=== PATIENT | male | born 1995 | race Caucasian/White ===

== ENCOUNTER 2024-02-02 08:21 | Emergency (ER) | payer SELFPAY ==
[2024-02-02 08:26] VITALS: BP 121/86; PULSE 76; RESP 18; TEMP 36.7; O2SAT 98; BMI 28.3
--- NOTE | 2024-02-02 08:27 | ECG_ITS ---
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 Measurements Intervals [place] Rate: 75 P: 47 DE: 136 QRS: 47 QRSD: 90 T: 41 QT: 384 QTc: 430 Interpretive Statements SINUS RHYTHM No previous ECG available for comparison Electronically Signed On 02-03-2024 01:04:22 DIGITAL PERFORMANCE ANALYST by Joanne Rothman M.D. [id number]
--- NOTE | 2024-02-02 08:38 | XR_ITS ---
WS: [id number] Exam: XR chest 1V portable [id number] Date/Time of Exam: 02/02/2024 8:40 AM Reason For Exam: dyspnea/cough No priors. Lungs are clear and fully inflated. Normal cardiomediastinal silhouette and regional bony elements. N o pleural effusion. XR/XR chest 1V portable [id number] IMPRESSION: 1. Normal chest.
--- NOTE | 2024-02-02 08:58 | ED_ITS ---
HPI - Chest Pain 2 General: Chief Complaint: Chest Pain Stated Complaint: Chest Pain, Headache Time Seen by Provider: 02/02/24 08:24 History of Present Illness: 28-year-old female presents emergency ro om complaining of chest pressure and discomfort that began yesterday slightly worse when she takes a deep breath. No nausea or vomiting no fever sweats or chills. No dysuria urgency or frequency. Patient is not hypertensive, no history of hyperlipidemia. She does not use tobacco products but does smoke marijuana for chronic migraines. Associated symptoms: Deny abdominal pain, dyspnea, fever(s) or palpitations Related Data Home Medications Medication Instructions Recorded Confirmed acetaminophen 325 mg tablet 325 mg PO QID PRN Pain 02/02/24 02/02/24 (Tylenol) ibuprofen 200 mg tablet (Advil) 200 mg PO Q6H PRN Pain 02/02/24 02/02/24 Allergies Allergy/AdvReac Type Severity Reaction Status Date / Time No Known Allergies Allergy Verified 02/02/24 08:31 Review of Systems 2 Const: Denies: fever(s) or chills Card: Reports: chest pain; Denies: palpitations, irregular heart rhythm, edema, swelling of feet/ankles or dyspnea on exertion Resp: Denies: dyspnea GI: Denies: abdominal pain : Denies: dysuria, urinary frequency or urinary urgency Musc: Denies: neck pain or back pain Skin/Breast: Denies: rash Physical Exam 2 Const: GENERAL APPEARANCE: cooperative ORIENTATION/CONSCIOUSNESS: Yes awake, Yes oriented to person, Yes oriented to place and Yes oriented to time HENMT: COMMON NORMALS: normocephalic, atraumatic and hearing grossly normal bilaterally HEAD & SCALP: normocephalic and atraumatic Resp: COMMON NORMALS: normal respiratory effort, No retractions, No use of accessory muscles and clear to auscultation bilaterally AUSCULTATION: clear to auscultation bilaterally Cardio: COMMON NORMALS: regular rate, regular rhythm and No murmurs present (Cardio) RATE: regular rate RHYTHM: regular rhythm GI: COMMON NORMALS: Soft to palpation and No hepatosplenomegaly present A USCULTATION: Yes normoactive bowel sounds PALPATION: Yes Soft to palpation, No Tenderness to palpation present (GI), No Guarding due to palpation present (GI) and Yes No hepatosplenomegaly present Extremity: COMMON NORMALS: normal to inspection, capillary refill normal, no clubbing, cyanosis or edema, no calf tenderness and no pedal edema Neuro: SENSORIUM/ORIENTATION: Yes oriented to person, Yes oriented to place and Yes oriented to time Skin: COMMON NORMALS: no rashes or lesions noted GENERAL SKIN EXAM: no rashes or lesions noted Course 2 Vital Signs: Vital signs: Vital Signs Temperature 98.1 F 02/02/24 08:26 Pulse Rate 81 02/02/24 12:41 Respiratory Rate 18 02/02/24 08:26 Blood Pressure 111/78 02/02/24 12:41 Pulse Oximetry 98 02/02/24 12:41 Oxygen Delivery Me thod Room Air 02/02/24 12:01 MDM - Chest Pain Medical Decision Making Cardiac enzymes did not trend positive. EKGs did not show any acute changes. Chest x-ray normal. Discharge patient home follow-up with his primary care doctor. Medical Records I reviewed the patient's medical records. Lab Data I reviewed the patient's lab results. 02/02/24 09:07 02/02/24 09:07 Radiology Impressions Chest X-Ray 02/02/24 08:38 IMPRESSION: 1. Normal chest. Laboratory Results WBC 5.84 10^3/uL (3.29-11.43) 02/02/24 09:07 RBC 4.67 10^6/uL (3.85-5.65) 02/02/24 09:07 Hgb 13.00 g/dL (11.27-16.99) 02/02/24 09:07 Hct 39.3 % (37-53) 02/02/24 09:07 MCV 84.2 fl (82-101) 02/02/24 09:07 MCH 27.8 pg (27-33) 02/02/24 09:07 MCHC 33.1 g/dL (30-55) 02/02/24 09:07 RDW 13.8 % (12.1-15.1) 02/02/24 09:07 Plt Count 220 10^3/cmm (157-399) 02/02/24 09:07 MPV 10.8 fL (7.4-10.4) H 02/02/24 09:07 Neut % (Auto) 51.9 % 02/02/24 09:07 Lymph % (Auto) 31.2 % 02/02/24 09:07 [place] % (Auto) 9.6 % 02/02/24 09:07 Eos % (Auto) 5.7 % 02/02/24 09:07 Baso % (Auto) 0.9 % 02/02/24 09:07 Neut # (Auto) 3.04 10^3/uL (1.8-7.7) 02/02/24 09:07 Lymph # (Auto) 1.8 10^3/uL (0.8-4.8) 02/02/24 09:07 [place] # (Auto) 0.6 10^3/uL (0.2-0.9) 02/02/24 09:07 Eos # (Auto) 0.3 10^3/uL (0.0-0.8) 02/02/24 09:07 Baso # (Auto) 0.1 10^3/uL (0.0-0.1) 02/02/24 09:07 Nucleated RBC % (auto) 0 % 02/02/24 09:07 Nucleated RBCs # 0.0 /100WBC 02/02/24 09:07 Sodium 139 mmol/L (136-145) 02/02/24 09:07 Potassium 3.7 mmol/L (3.5-5.1) 02/02/24 09:07 Chloride 105 mmol/L (98-107) 02/02/24 09:07 Carbon Dioxide 24 mmol/L (22-29) 02/02/24 09:07 Anion Gap 13.7 (5-19) 02/02/24 09:07 BUN 17 mg/dL (6-20) 02/02/24 09:07 Creatinine 0.6 mg/dL (0.7-1.2) L 02/02/24 09:07 GFR Calculation 158.2 mL/min (90-130) H 02/02/24 09:07 Glucose 93 mg/dL (65-115) 02/02/24 09:07 Calculated Osmolality 289 mOsm/kg (285-295) 02/02/24 09:07 Calcium 9.3 mg/dL (8.5-10.5) 02/02/24 09:07 Total Bilirubin 0.4 mg/dL (0.15-1.2) 02/02/24 09:07 AST 33 U/L (0-40) 02/02/24 09:07 ALT 40 U/L (0-41) 02/02/24 09:07 Alkaline Phosphatase 62 U/L (40-130) 02/02/24 09:07 Troponin T Baseline < 6 ng/L (0-15) 02/02/24 09:07 Troponin T 120 Minute 6.00 ng/L (0-15) 02/02/24 11:45 Delta Troponin T 0.81988 ABS# (0-10) 02/02/24 11:45 Total Protein 7.4 g/dL (6.6-8.7) 02/02/24 09:07 Albumin 4.4 g/dL (3.5-5.2) 02/02/24 09:07 Globulin 3.0 g/dL (1.3-4.6) 02/02/24 09:07 All radiology interpretation(s) finalized by discharge Discharge Plan Discharge Patient Disposition: Home Clinical Impression: Atypical chest pain Condition: Stable Prescriptions: No Action acetaminophen [Tylenol] 325 mg Tablet 325 mg PO QID PRN (Reason: Pain) ibuprofen [Advil] 200 mg Tablet 200 mg PO Q6H PRN (Reason: Pain) Discharge Orders: Discharge ED (Routine); Ordered 02/02/24 Ordered By: Lefty Duvall Discharge Diet: Usual diet Discharge Activity: Resume usual activity Patient Instructions: Opioid Safety, Pain Management Activity Restrictions/Additional Instructions: Thank you for choosing [facility] for your healthcare needs today. It is very important that you follow up as instructed or that you return to the Emergency Department should you have concerns or if your condition changes or worsens in any way. You were seen in the emergency room with complaints of chest pain. Cardiac enzymes were negative. EKG and chest x-ray are also negative. There is no evidence of acute coronary syndrome, pneumonia, pneumothorax, pulmonary embolism or dissecting aneurysm. Suspect some of your symptoms may be related to irritation of the lining of the lungs called pleuritis. Follow-up with your primary care doctor if persists. Stand Alone Forms: Work/School Release Coding Level of Care Code ED Systems Software Manager for Harrison Zimmer
[2024-02-02] MEDS: acetaminophen 325 mg Tablet 650 MG PO (09:13)
[2024-02-02 09:38] VITALS: BP 125/89; PULSE 65; O2SAT 97
[2024-02-02 09:42] LABS: Basophils # 0.1 10^3/uL (0.0-0.1); Basophils % 0.9 %; Eosinophils # 0.3 10^3/uL (0.0-0.8); Eosinophils % 5.7 %; Hematocrit 39.3 % (37-53); Lymphocytes # 1.8 10^3/uL (0.8-4.8); Lymphocytes % 31.2 %; Mean Corpuscular HGB Conc 33.1 g/dL (30-55); Mean Corpuscular Hemoglobin 27.8 pg (27-33); Mean Corpuscular Volume 84.2 fl (82-101); Mean Platelet Volume 10.8 fL (7.4-10.4); Monocytes # 0.6 10^3/uL (0.2-0.9); Monocytes % 9.6 %; Neutrophils # 3.04 10^3/uL (1.8-7.7); Neutrophils % 51.9 %; Nucleated Red Blood Cells % 0 %; Platelet Count 220 10^3/cmm (157-399); Red Blood Count 4.67 10^6/uL (3.85-5.65); Red Cell Distribution Width 13.8 % (12.1-15.1); White Blood Count 5.84 10^3/uL (3.29-11.43)
[2024-02-02 09:57] LABS: Alanine Aminotransferase 40 U/L (0-41); Albumin Level 4.4 g/dL (3.5-5.2); Alkaline Phosphatase 62 U/L (40-130); Anion Gap 13.7 (5-19); Aspartate Amino Transferase 33 U/L (0-40); Blood Urea Nitrogen 17 mg/dL (6-20); Calcium 9.3 mg/dL (8.5-10.5); Carbon Dioxide 24 mmol/L (22-29); Chloride 105 mmol/L (98-107); Creatinine Clr Calc Pharmacy 172.4973; Glomerular Filtration Rate 158.2 mL/min (90-130); Glucose 93 mg/dL (65-115); Osmolality Calculated 289 mOsm/kg (285-295); Potassium 3.7 mmol/L (3.5-5.1); Sodium 139 mmol/L (136-145); Total Bilirubin 0.4 mg/dL (0.15-1.2); Total Protein 7.4 g/dL (6.6-8.7)
--- NOTE | 2024-02-02 10:00 | ECG_ITS ---
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 Measurements Intervals [place] Rate: 64 P: 44 DC: 135 QRS: 39 QRSD: 82 T: 36 QT: 420 QTc: 435 Interpretive Statements SINUS RHYTHM Compared to ECG 02/02/2024 08:27:30 No significant changes Electronically Signed On 02-03-2024 01:04:20 SECONDARY ART TEACHER by Joanne Rothman M.D. [email or web address]
[2024-02-02 10:16] VITALS: PULSE 76; O2SAT 95
[2024-02-02 10:18] LABS: Troponin(5th) Baseline < 6 ng/L (0-15)
--- NOTE | 2024-02-02 11:58 | ECG_ITS ---
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 Measurements Intervals [place] Rate: 63 P: 38 MN: 146 QRS: 34 QRSD: 80 T: 34 QT: 406 QTc: 419 Interpretive Statements SINUS RHYTHM Compared to ECG 02/02/2024 10:03:42 No significant changes Electronically Signed On 02-03-2024 01:13:03 FOSTER WINDER by Joanne Rothman M.D. [id number]
[2024-02-02 12:01] VITALS: O2SAT 98
[2024-02-02 12:10] LABS: Troponin 5 2HR Delta 0.00001 ABS# (0-10)
[2024-02-02 12:41] VITALS: BP 111/78; PULSE 81; O2SAT 98
== END 2024-02-02 12:41 | disposition home or self-care (01) ==
PROVIDERS: Emergency Provider Family Medicine
DX: R07.89 Other chest pain (principal)
CPT/HCPCS: 36415; 71045; 80053; 84484; 85025; 93005; 99285